=== PATIENT | male | born 1985 | race Caucasian/White ===

== ENCOUNTER 2021-01-26 00:52 | Outpatient (CLI) | payer OTHER, SELFPAY ==
--- NOTE | 2021-01-26 | DI.RAD_ITS ---
Exam(s) XR LUMBAR SPINE COMPLETE EXAM: XR LUMBAR SPINE COMPLETE CLINICAL HISTORY: BACK PAIN, M54.9. TECHNIQUE: 2D digital imaging was performed. COMPARISON: No exams were available for comparison FINDINGS: No evidence of for fracture or listhesis nor pars defects. There is mild disc space narrowing at L3- 4 and L2-3 levels. Other disc spaces exhibit normal height. No obvious facet arthropathy. Sacroili ac joints appear unremarkable. No osseous lesions. IMPRESSION: Subtle degenerative disc disease. As described above. Clinically indicated follow-up MRI can be per formed DATA REPOSITORY: RADIATION DOSE DELIVERED:
== END 2021-01-26 01:12 ==
PROVIDERS: PCP Pediatrics; Visit Provider Nurse Practitioner Family
DX: M51.36 Other intervertebral disc degeneration, lumbar region (principal)
CPT/HCPCS: 72110